=== PATIENT | male | born 1965 ===

== ENCOUNTER 2017-04-18 13:02 | Day surgery (SDC) | payer BC ==
[~2017-04-18 13:02] MED LIST: Acetaminophen TAB* 325 MG PO PRN; Buffered Lidocaine 0.9% SYRIN* 5 ML/SYR SYRINGE INTRADERM ONE; Trypan Blue 0.06% SOL* 0.5 ML BTL ONE
[2017-04-18] MEDS ORDERED: Cyclopentolate 1% OPTH.SOL* 2 ML BTL ONE (16:16)
[2017-04-18] MEDS ORDERED: Ketorolac 0.5% OPHTH (NF) 0.5 % 5 ML BTL ONE (16:16)
[2017-04-18] MEDS ORDERED: Povidone Iodine 5% OPTH* 30 ML BTL ONE (16:16)
[2017-04-18] MEDS ORDERED: acetaZOLAMIDE TAB* 250 MG ONE (16:16)
[2017-04-18] MEDS ORDERED: Neomycin/Polymy/Dex OPHTH.OIN* 3.5 GM ONE (16:16)
[2017-04-18] MEDS ORDERED: Tropicamide 1% OPTH.SOL* BTL ONE (16:16)
[2017-04-18] MEDS ORDERED: Tetracaine 0.5% OPTH.SOL 4 ML* 1 DROP BTL ONE (16:16)
[2017-04-18] MEDS ORDERED: Phenylephrine 2.5% OPTH.SOL* 2 ML BTL ONE (16:16)
[2017-04-18] MEDS ORDERED: Buffered Lidocaine 0.9% SYRIN* 5 ML/SYR SYRINGE ONE (16:16)
[2017-04-18] MEDS ORDERED: Lidocaine 1% MPF* 2 ML VIAL ONE (16:16)
[2017-04-18] MEDS ORDERED: fentaNYL* 50 MCG/ML 2 ML VIAL (100 MCG VIAL) ONE (16:19)
[2017-04-18] MEDS ORDERED: Midazolam* 1 MG/ML 2 ML VIAL (2 MG) ONE (16:20)
[2017-04-18 17:47] VITALS: BP 123/76
--- NOTE | 2017-04-19 11:18 | OP ---
DATE OF OPERATION: 04/18/17 - [facility] DATE OF : 67 SURGEON: Iftikhar Reis MD ANESTHESIOLOGIST: Tristen Traylor MD ANESTHESIA: Monitored anesthesia care. PRE-OP DIAGNOSIS: Mature cataract to the left eye. POST-OP DIAGNOSIS: Mature cataract to the left eye. OPERATIVE PROCEDURE: Cataract surgery of left eye. IMPLANTS: SN60WF 23.5 diopter lens to the left eye. COMPLICATIONS: None. DESCRIPTION OF PROCEDURE: The patient was given phenylephrine 2.5% and cyclopentolate 1% eye drops to the operative eye in the preoperative area. The patient was brought to the operating room where a time-out was taken to identify the correct patient, site, and side of the surgery. The patient's left eye was prepped and draped in the usual sterile fashion with 5% Betadine. A second time- out was taken to verify the correct patient, site, and side of surgery, and correct lens selection. A lid speculum was placed to the left eye. A 1-mm paracentesis blade was used to make a clear corneal incision in the inferotemporal position. Preservative-free 1% lidocaine was injected into the anterior chamber. VisionBlue was then injected into the anterior chamber under a gas bubble. Healon was then injected in the anterior chamber to wash out the VisionBlue as well, then to stabilize the anterior chamber. A 2.75-mm keratome blade was used to make a triplanar incision at the superotemporal position. A cystotome initiated a capsulorrhexis, which was completed with MST forceps in a continuous and curvilinear manner. Hydrodissection of the lens was performed with BSS on a cannula. The lens could be spun in the capsular bag. The phacoemulsification handpiece was used with a [id number] technique to remove the nucleus in its entirety. The I/A handpiece then removed the residual cortical lens material. DisCoVisc was injected to inflate the capsular bag. The planned SN60WF 23.5 diopter lens was then injected into the capsular bag. The residual DisCoVisc was removed from the eye with the I/A handpiece. The corneal incisions were hydrated and no leaks occurred at physiologic pressure around 20 mmHg per palpation. The lid speculum was removed and drapes removed. Maxitrol ointment was placed to the surface of the operative eye. An adhesive patch and shield was placed on the operative eye. The patient was taken to the postoperative area in stable condition. [id number]/[facility] #: [id number]
== END 2017-04-18 17:55 | disposition home or self-care (01) ==
LOC: OREAST 13:02
PROVIDERS: ATTEND Student in an Organized Health Care Education/Training Program
DX: H25.12 Age-related nuclear cataract, left eye (principal); F17.210 Nicotine dependence, cigarettes, uncomplicated; I10 Essential (primary) hypertension; E66.9 Obesity, unspecified; Z68.41 Body mass index [BMI] 40.0-44.9, adult; K21.9 Gastro-esophageal reflux disease without esophagitis
CPT/HCPCS: A9270-GY; J2250; J3010; V2632